=== PATIENT | male | born 1955 | race Caucasian/White ===

== ENCOUNTER 2021-05-05 12:20 | Outpatient (REF) | payer SELFPAY ==
[2021-05-09 08:12] LABS: SARS COV2 IgG Negative (Negative)
== END 2021-05-05 12:21 | disposition home or self-care (01) ==
LOC: HO.HMGCLDS 12:20
PROVIDERS: Visit Provider Physician Assistant Medical
DX: Z20.822 Contact with and (suspected) exposure to COVID-19 (principal)
CPT/HCPCS: 36415; 86769